=== PATIENT | male | born 1945 | race Caucasian/White ===

== ENCOUNTER 2024-05-02 08:10 | Outpatient (CLI) | payer MEDICARE, BC | END 2024-05-02 08:11 | disposition home or self-care (01) | LOC: SCSMRI 08:10 | PROVIDERS: ATTEND Internal Medicine Hematology & Oncology | DX: I82.91 Chronic embolism and thrombosis of unspecified vein (principal) | CPT/HCPCS: 36415; 74183; 76376; 82565 ==